=== PATIENT | male | born 1985 | race Caucasian/White ===

== ENCOUNTER → 2018-07-12 | Day surgery (SDC) | payer BC ==
[~2018-07-12] MED LIST: BUPIVACAINE HCL 0.5% 10ML MPF VIAL INJ ONE; CLINDAMYCIN PHOS 900MG/ 50ML 50 ML IV ONE; DEXAMETHASONE SOD PHOS INJ 4 MG/ML VIAL ONE; FENTANYL CITRATE/PF 100MCG/2 ML INJ ONE; KETOROLAC TROMETHAMINE 30 MG/ML VIAL ONE; MIDAZOLAM HCL 2 MG/2 ML VIAL ONE; NEOSTIGMINE 1 MG/ML 10ML VIAL ONE; NORCO 10-325 T1 EACH; ONDANSETRON HCL INJ 2 MG/ML VIAL ONE; PROPOFOL IV EMULSION 10 MG/ML 20 ML VIAL ONE; SEVOFLURANE INHAL SOLN 250 ML PEN BTL ONE
[2018-07-12 06:39] LABS: BASOPHILS # (AUTO) 0.1 (0.0-0.1); BASOPHILS % 0.8 % (0.0-1.0); EOSINOPHILS # (AUTO) 0.2 (0.0-0.4); EOSINOPHILS % 2.9 % (0.0-6.0); HEMOGLOBIN 14.7 g/dL (14.0-18.0); LYMPHOCYTES # (AUTO) 2.4 (1.0-3.2); LYMPHOCYTES % 36.8 % (18.0-39.1); MEAN CORPUSCULAR HEMOGLOBIN 30.2 pg (28-32); MEAN CORPUSCULAR VOLUME 86.4 fL (81-99); MONOCYTES # (AUTO) 0.7 (0.2-0.8); MONOCYTES % 10.2 % (4.4-11.3); NEUTROPHILS # (AUTO) 3.2 (2.1-6.9); NEUTROPHILS % 49.1 % (38.7-80.0); PLATELET COUNT 276 x10e3/uL (140-360); RED BLOOD COUNT 4.86 x10e6/uL (4.3-5.7); RED CELL DISTRIBUTION WIDTH 12.8 % (11.7-14.4)
[2018-07-12 10:05] VITALS: BP 100/60
--- NOTE | 2018-07-12 12:53 | Operative Report ---
DATE OF PROCEDURE: July 12, 2018 PREOPERATIVE DIAGNOSIS: Painful hardware left foot. POSTOPERATIVE DIAGNOSIS: Painful hardware left foot. TITLE OF OPERATION: Removal of hardware left foot. ANESTHESIA: General endotracheal. HEMOSTASIS: A left thigh tourniquet at 350 mmHg. PROCEDURE IN DETAIL: The patient was taken to the operating room in a mildly sedated state and placed upon the operating table in supine position. Following induction of general anesthetic, the left lower extremity was elevated to 60 degrees to exsanguinate before inflating the pneumatic thigh tourniquet to 350 mmHg to create hemostasis. The left lower extremity was placed upon the operating table prior to performing the following procedures. Procedure number 1 is the removal of hardware of the left foot. An approximately 4 cm lateral incision was placed overlying the lateral fibular plate. The plate itself as well as all screws attaching it were removed from the lateral aspect of the fibula. The fibula was well healed. There was in the central aspect of the plate a transmalleolar screw which was advanced all the way from tibia through the interosseous and out the fibula. The area was irrigated with copious amounts of sterile saline solution. Deep closure was 3-0 Vicryl. Subcutaneous closure was 4-0 Vicryl and skin closure 4-0 nylon. Attention was then directed to the medial aspect of the ankle where the medial malleolus fracture had been fixated with 2 cortical bone screws. Both screws were identified. They were cannulated, and a K-wire was inserted into the screw. The screws were then backed out with the appropriate drivers. The area was irrigated with copious amounts of sterile saline solution. It was noted that the proximal screw was loose and the bone underlying felt somewhat soft. Further inspection of any suspicious material in that area was done, and nothing was found. The area was irrigated with copious amounts of sterile saline solution. Deep closure was 3-0 Vicryl, subcutaneous closure 4-0 Vicryl and skin closure 4-0 nylon. The areas of surgery were all blocked with 0.5 Marcaine and Decadron [place]. Release of the pneumatic thigh tourniquet showed a normal hyperemic flush to all digits of the left foot, and the patient left the operating room with vital signs stable, in apparent satisfactory condition, having tolerated both the anesthetic and procedure very well. Job#: [id number]
== END | disposition home or self-care (01) ==
LOC: OR 05:21
PROVIDERS: ATTEND Podiatrist Foot Surgery
DX: T84.498A Other mechanical complication of other internal orthopedic devices, implants and grafts, initial encounter (principal); Z01.812 Encounter for preprocedural laboratory examination; Z88.0 Allergy status to penicillin
CPT/HCPCS: 20680; 36415; 76000; 85025; J1100; J1885; J2250; J2405; J2710